=== PATIENT | female | born 1960 | race Caucasian/White ===

== ENCOUNTER 2024-05-10 18:12 | Day surgery (SDC) | payer OTHER, SELFPAY ==
[2024-05-10 13:58] VITALS: BP 195/108
[2024-05-10 14:16] LABS: % Basophils 0.2 % (0-2); % Eosinophils 0.3 % (0-6); % Immature Granulocytes 0.4 % (0-0.5); % Lymphocytes 9.8 % (20.5-51.1); % Monocytes 5.5 % (1.7-9.3); % Neutrophils 83.8 % (42.2-75.2); Absolute Immature Granulocytes 0.1 10^3/uL (0-0.05); Absolute Lymphocytes 1.3 10^3/uL (1.2-3.4); Absolute Monocytes 0.7 10^3/uL (0.1-0.6); Absolute Neutrophils 11.1 10^3/uL (1.4-6.5); Hematocrit 42.3 % (37.0-47.0); Mean Corp Hgb Conc. 35.5 g/dL (33.0-37.0); Mean Corpuscular Hgb 29.3 pg (27.0-31.0); Mean Corpuscular Volume 82.6 fL (81.0-99.0); Mean Platelet Volume 9.8 fL (7.4-10.4); Nucleated Red Blood Cells % 0 %; Platelet Count 182 10^3/uL (130-400); Red Blood Cell Count 5.12 10^6/uL (4.20-5.40); Red Cell Dist. Width 12.6 % (11.5-14.5); White Blood Cell Count 13.2 10^3/uL (4.8-10.8)
[2024-05-10 14:17] LABS: Urine Albumin Negative (Neg - Trace); Urine Bilirubin Negative (Negative); Urine Character Clear (Clear); Urine Color Yellow; Urine Glucose Negative (Negative); Urine Ketone 3+ (Negative); Urine Leukocyte Negative (Negative); Urine Nitrite Negative (Negative); Urine Occult Blood 1+ (Negative); Urine Specific Gravity 1.015 (<1.030); Urine Urobilinogen Negative (Neg - 1+)
[2024-05-10 14:32] LABS: ALT (SGPT) 33 U/L (0-35); AST (SGOT) 31 U/L (14-36); Albumin 4.8 g/dl (3.5-5.0); Alkaline Phosphatase 98 U/L (38-126); Blood Urea Nitrogen 17 mg/dl (7-17); Calcium 9.5 mg/dl (8.4-10.2); Carbon Dioxide 25 mmol/L (22-30); Chloride 100 mmol/L (98-107); Glucose 120 mg/dl (70-99); Potassium 4.5 mmol/L (3.5-5.1); Sodium 135 mmol/L (135-145); Total Bilirubin 1.4 mg/dl (0.2-1.3); Total Protein 7.5 g/dl (6.3-8.2); eGFR 50.86
[2024-05-10 14:43] LABS: Urine Red Blood Cell 0-2 /HPF (0-2); Urine White Cell 0-2 /HPF (0-5)
--- NOTE | 2024-05-10 14:51 | ED.GENMED ---
History of Present Illness
<Ivy Aquino PA-C - Last Filed: 05/10/24 18:18>
General
Chief Complaint: Flank Pain
Source: patient
Exam Limitations: none
Time Seen by Provider: 05/10/24 14:48
Nursing documentation reviewed up to this point in time: agreed with
Travel History
Have you had any contact with someone who has COVID-19?: No
Do you have any symptoms of coronavirus? Fever > 100 degrees, chills, cough, shortness of breath, sore throat, loss of taste or smell, muscle aches, or headache?: No
History of Present Illness
History of Present Illness:
Patient is a 63-year-old female presenting for evaluation of flank pain in setting of a known kidney stone. Patient states that she initially noticed symptoms on Wednesday evening while she was [place] [facility] [place] with dull pain in her left
side. Patient states by Wednesday afternoon the pain in her left side was much more severe and she visited an emergency department in March. She was found to have a 6.6 mm kidney stone on the left side with a 'bacterial infection' per patient.
At that time�patient states it was recommended that she stay in the hospital but she opted for discharge and was placed on a course of Keflex. She was also sent home with 800 mg ibuprofen to take as needed for pain.
Patient states that over the past few days the pain has persisted and is been very severe in her left flank. She describes associated nausea and chills. Patient denies any known fever, blood in her urine, persistent fatigue or weakness. Patient
has been also having some constipation and burning in her esophagus which she believes is likely related to the ibuprofen.
Patient was seen by her primary care provider today for evaluation and was sent to the emergency department due to the concern of a kidney stone and possible infection.
Review of Systems
<Ivy Aquino PA-C - Last Filed: 05/10/24 18:18>
Review of Systems
Allergies reviewed?: Yes
All Other Systems: ROS reviewed and negative except as documented in HPI and ROS
Phy Exam
<Ivy Aquino PA-C - Last Filed: 05/10/24 18:18>
Physical Exam
Physical Exam:
Vitals: Hypertensive, otherwise vital signs stable. Afebrile
General: Patient is moderately uncomfortable appearing, no acute distress. Nontoxic-appearing
Skin: Warm and dry, no rashes or lesions
Head: Normocephalic, atraumatic
Eyes: Sclera nonicteric. EOMs intact. No nystagmus.
Throat: Protecting airway
Neck: Normal ROM, no cervical spine tenderness, no meningismus
Cardiac: Regular rate and rhythm, no murmurs.
Pulm: Normal respiratory effort, no wheezes, rales, rhonchi heard on exam.
Abdomen: Abdomen soft. No abdominal tenderness. No CVA tenderness bilaterally
Extremities: No evidence of cyanosis or edema. Great distal pulses
Neuro: AAOx3. CN II-XII intact. No focal neurologic deficits.
Psychiatric: Normal affect.
Course
<Ivy Aquino PA-C - Last Filed: 05/10/24 18:18>
Orders/Labs/Results
Orders:
Orders
05/10/24 14:06
Complete Blood Count/With Diff Urgent
Comprehensive Metabolic Panel Urgent
Urinalysis Reflex To Culture Urgent
Date Specimen was Collected: 05/10/24
Time Specimen was Collected: 14:01
Urine Microscopic Reflex Cult Urgent
05/10/24 15:11
CT Abd/pel Without Iv Or Oral Urgent
Comment:
Reason For Exam: L flank pain; known kidney stone
0.9% Sodium Chloride 1000 ml [Nss] 1,000 ml IV BOLUS
Ondansetron Injectable [Zofran] 4 mg IV NOW STA
05/10/24 15:14
Ketorolac [Toradol] 15 mg IV NOW STA
05/10/24 15:25
HYDROmorphone [Dilaudid] 1 mg IV NOW STA
05/10/24 17:54
Admit/Transfer Patient As Directed
Co-Sign Provider:
Level of Care: Observation services
Assign to:: Medical/Surgical
Physician / Group: lloyd
Diagnosis: obstructing uteral calculus
05/10/24 17:55
Code Status As Directed
Resuscitation Status: Full Code
05/10/24 17:57
Urine Culture Routine
SHELBI Source: Urine
Specimen Description:
05/11/24 Breakfast
NPO
Allow oral meds: Yes
Allow clear liquids: Sips of Clears
NPO with Ice Chips: No
05/11/24 08:00
Polyethylene Glycol Powder [Miralax] 17 grams PO DAILY
Abnormal Lab Results
05/10/24
14:06
WBC 13.2 H 10^3/uL
(4.8-10.8)
Abs Immat Gran (auto) 0.1 H 10^3/uL
(0-0.05)
Absolute Neuts (auto) 11.1 H 10^3/uL
(1.4-6.5)
Absolute Monos (auto) 0.7 H 10^3/uL
(0.1-0.6)
Neutrophils % 83.8 H %
(42.2-75.2)
Lymphocytes % 9.8 L %
(20.5-51.1)
Creatinine 1.2 H mg/dL
(0.6-1.0)
Glucose 120 H mg/dl
(70-99)
Total Bilirubin 1.4 H mg/dl
(0.2-1.3)
Urine Ketones 3+ A
(Negative)
Ur Occult Blood Reflex 1+ A
(Negative)
06/19/24 14:06
05/10/24 14:06
Vital Signs
Initial and Last Documented VS:
Initial Vital Signs
Temp Pulse Resp BP Pulse Ox
98.9 F 84 18 195/108 98
05/10/24 13:58 05/10/24 13:58 05/10/24 13:58 05/10/24 13:58 05/10/24 13:58
Last Documented Vital Signs
Temp Pulse Resp BP Pulse Ox
98.9 F 78 18 133/73 98
05/10/24 13:58 05/10/24 16:38 05/10/24 16:38 05/10/24 16:38 05/10/24 16:38
<David Caballero, DO - Last Filed: 05/10/24 15:57>
Orders/Labs/Results
Orders:
Orders
05/10/24 14:06
Complete Blood Count/With Diff Urgent
Comprehensive Metabolic Panel Urgent
Urinalysis Reflex To Culture Urgent
Date Specimen was Collected: 05/10/24
Time Specimen was Collected: 14:01
Urine Microscopic Reflex Cult Urgent
05/10/24 15:11
CT Abd/pel Without Iv Or Oral Urgent
Comment:
Reason For Exam: L flank pain; known kidney stone
0.9% Sodium Chloride 1000 ml [Nss] 1,000 ml IV BOLUS
Ondansetron Injectable [Zofran] 4 mg IV NOW STA
05/10/24 15:14
Ketorolac [Toradol] 15 mg IV NOW STA
05/10/24 15:25
HYDROmorphone [Dilaudid] 1 mg IV NOW STA
05/10/24 17:54
Admit/Transfer Patient As Directed
Co-Sign Provider:
Level of Care: Observation services
Assign to:: Medical/Surgical
Physician / Group: lloyd
Diagnosis: obstructing uteral calculus
05/10/24 17:55
Code Status As Directed
Resuscitation Status: Full Code
05/10/24 17:57
Urine Culture Routine
SHELBI Source: Urine
Specimen Description:
05/11/24 Breakfast
NPO
Allow oral meds: Yes
Allow clear liquids: Sips of Clears
NPO with Ice Chips: No
05/11/24 08:00
Polyethylene Glycol Powder [Miralax] 17 grams PO DAILY
Abnormal Lab Results
05/10/24
14:06
WBC 13.2 H 10^3/uL
(4.8-10.8)
Abs Immat Gran (auto) 0.1 H 10^3/uL
(0-0.05)
Absolute Neuts (auto) 11.1 H 10^3/uL
(1.4-6.5)
Absolute Monos (auto) 0.7 H 10^3/uL
(0.1-0.6)
Neutrophils % 83.8 H %
(42.2-75.2)
Lymphocytes % 9.8 L %
(20.5-51.1)
Creatinine 1.2 H mg/dL
(0.6-1.0)
Glucose 120 H mg/dl
(70-99)
Total Bilirubin 1.4 H mg/dl
(0.2-1.3)
Urine Ketones 3+ A
(Negative)
Ur Occult Blood Reflex 1+ A
(Negative)
05/10/24 14:06
05/10/24 14:06
Vital Signs
Initial and Last Documented VS:
Initial Vital Signs
Temp Pulse Resp BP Pulse Ox
98.9 F 84 18 195/108 98
05/10/24 13:58 05/10/24 13:58 05/10/24 13:58 05/10/24 13:58 05/10/24 13:58
Last Documented Vital Signs
Temp Pulse Resp BP Pulse Ox
98.9 F 78 18 133/73 98
05/10/24 13:58 05/10/24 16:38 05/10/24 16:38 05/10/24 16:38 05/10/24 16:38
<Ivy Aquino PA-C - Last Filed: 05/10/24 18:18>
MDM/Problems Addressed
Differential Diagnosis Includes:
Not limited to: Kidney stone, UTI, diverticulitis, zoster, urosepsis
MDM/Problems Addressed:
Patient is a 63-year-old female presenting with intractable pain from known left sided kidney stone diagnosed at a hospital 4 days ago. Patient was told that she had a left-sided kidney stone with a 'bacterial infection'. She was started on Keflex
and discharged with pain medication. Patient reports intractable left-sided flank pain with associated nausea and chills. No vomiting or known fevers. Patient hypertensive on arrival which is likely attributed to pain. Otherwise vital signs are
stable on arrival, she is afebrile. Physical exam as above. Although patient is moderately uncomfortable due to pain�she is nontoxic-appearing. Abdomen soft and nontender. No CVA tenderness bilaterally. No erythema or bruising overlying
bilateral flanks. Labs obtained in triage shows a mild leukocytosis of 13.2 with left shift. Mild elevation in creatinine to 1.2�although no baseline available. Urine shows no signs of infection at this time. Given prior records were done at
outside hospital and unable to obtain at this time�will check a repeat noncontrast CT scan to determine size and location of stone. Will give Toradol, Zofran, IV fluid. Will closely monitor and reassess. Anticipate admission for pain control.
Called and spoke to outside hospital with prior records. It was confirmed that patient's urinalysis did not show signs of UTI, although did have evidence of bacteria which they suspect to be contamination. No urine culture was sent at this time.
Patient was put on Keflex prophylactically due to asymptomatic bacteriuria and known kidney stone. Did discuss this with patient
Patient with significant pain improvement following Toradol. CT scan does show a 7 mm obstructing calculus at left UPJ with associated hydronephrosis of left ureter and left perinephric stranding. Did discuss findings with urologist on-call,
Claus. He was down to evaluate patient at bedside. Patient will be admitted for IV antibiotics and OR tomorrow. Patient comfortable with plan. Discussed with hospitalist.
Chronic conditions affecting care:
Known kidney stone
Acute Exacerbation and/or Progression of Chronic Illness:
Obstructing left ureteral stone
<Ivy Aquino PA-C - Last Filed: 05/10/24 18:18>
*Radiology
Radiology exam reviewed: preliminary read by ED provider and radiology read reviewed
*Pulse Oximetry
Patient hypoxic: no
*EKG
Interpreted by ED Provider?: NA
*Residential Building Inspector Interpretation
Rate: Residential Building Inspector- N/A
*Critical Care Note
Total Time (30-74mins, 75-104mins- exclusive of procedures): Not Applicable
<Ivy Aquino PA-C - Last Filed: 05/10/24 18:18>
Patient Management
Discussion with other providers: Hospitalist and Van Driver Helper (Dr Devlin - Urology)
ED Attending Note
<Ivy Aquino PA-C - Last Filed: 05/10/24 18:18>
-
Portions of this chart may have been created with voice recognition software.� Occasional wrong word or��sound alike� substitutions may have occurred due to the inherent limitations of voice recognition software.
<David Caballero DO - Last Filed: 05/10/24 15:57>
ED Attending Note
Patient seen and examined by attending physician: Yes
I performed the substantive portion of visit, reviewed & personally made and approve the management plan that is documented in note by myself or TAL.: Yes
ED Attending Note:
Patient is 63-year-old female who 3 days ago was seen at [place] [facility] [place] and found to have a 6.6 mm stone and was placed on antibiotics because of bacteria in her urine presents because of increasing pain. Patient has chills but no
fever. Patient's had nausea. Patient has no history of previous kidney stones. Patient was supposed to stay in the hospital but wanted to go home. Patient's been constipated. Patient during the night developed burning in her abdomen after
taking ibuprofen 800 mg. Patient is also taking cephalexin for questionable infected stone. On physical exam patient does appear to be mildly uncomfortable. Heart is regular lungs are clear. Abdomen is essentially unremarkable. Patient does
have left CVA tenderness. Patient has no cyanosis or edema. The urine from the sugar was checked and does not appear to be infected. Patient does not appear to be septic. The location of the stone is unknown. Will repeat the scan. If it truly
is 6.6 mm and in the mid to proximal ureter patient will probably require admission and manipulation.
Discharge Plan
Departure
Patient Disposition: Admit
Date of Disposition: 05/10/24
Time of Disposition: 17:31
Presentation/result/management discussed w/ accepting MD/DO: Hospitalist
Discharge Problem:
Calculus of proximal left ureter
Interventions
Interventions:
*Risk Screen - Suicide Last Done: 05/10/24 15:25
*General Assessment Last Done: 05/10/24 15:25
*Neglect/Abuse Screening Last Done: 05/10/24 15:25
ED- Fall Risk Assessment Last Done: 05/10/24 15:25
DX-Rsolax-Cbpsegamua Assessment Last Done: 05/10/24 15:25
ED-Female Genitourinary Assessment Last Done: 05/10/24 15:25
[2024-05-10] MEDS: TORADOL 15 MG IV (15:34)
[2024-05-10] MEDS: NSS 1000 IV ×2 (15:34→20:51)
[2024-05-10] MEDS: ZOFRAN 4 MG IV (15:34)
[2024-05-10 16:38] VITALS: BP 133/73
--- NOTE | 2024-05-10 17:38 | W.PN.URO.CBU ---
Today's Communication / Plan
-
admit hospitalist npo over midnight hospitalst to choose icve abs call urology if fever chills fever over 101.5
Assessment / Plan
-
pt non toxic but upj stone and at risk foer sepsis will hydrate over nioght render npo give iv abs for stent but if ubstable ie fever over 101.5 hypotension etc then stent tonight
Diagnosis
-
Date of Service: May 10, 2024
-
Patient Diagnosis:
left upj stone no fevr but chills wbc 13k intractable pain on advil and keflex getting worse
Post Op Day:
Subjective
-
coil no ferv no n/v severe contipation colic some chills
Objective
-
Vital Signs
Temp Pulse Resp BP Pulse Ox
98.9 F 78 18 133/73 98
05/10/24 13:58 05/10/24 16:38 05/10/24 16:38 05/10/24 16:38 05/10/24 16:38
Laboratory Results
05/10/24 14:06
05/10/24 14:06
Review of Systems
-
Constitutional: Chills
Abdomen/GI: Abdominal Pain and Constipated
: Flank Pain
Physical Exam
-
General - well developed, well nourished, no acute distress non toxic
Chest - clear bilaterally
Abdomen - soft, non-tender, positive bowel sounds, no CVAT, no incisional pain or distention
Genitalia - normal
Rectal - normal
Skin - warm & dry with no rash
Neuro - AOx3, no motor deficits
Extremities - no clubbing, no cyanosis, no edema
Incision - clean, dry
Dressing - clean, dry, intact
Care Review
Data Reviewed
Discussed with: Nursing
CT Scan: Image Pers Reviewed
--- NOTE | 2024-05-10 17:58 | HPS.HSE ---
Family Physician
-
Family Physician: Mariann Chávez
Chief Complaint
-
left flank pain
History of Present Illness
63-year-old female past medical history of hyperlipidemia, hypothyroidism, kidney stone presenting for left flank pain she initially noticed 3 days ago while she was in [place]. The next day pain on her left side was much more severe and she
went to an emergency room in March. She was found to have 6.6 mm kidney stone on the left side as well as a bacterial infection as per patient. She was recommended to stay in the hospital but she opted for discharge and was started on Keflex.
She was given ibuprofen as needed for pain. Over the past few days pain has persisted and has been very severe with associated nausea and chills. She denies fever, blood in the urine, fatigue or weakness, burning with urination.
She has been constipated and been having burning in the esophagus which she thinks is due to ibuprofen. Last bowel movement 2 days ago despite taking Dulcolax yesterday.
She was sent in by primary care physician.
She is a former smoker. She rarely drinks alcohol.
Medical History
Past Medical History
Past Medical History: Reports Other (hyperlipidemia, hypothyroidism,)
Past Surgical History: Reports Other (deviated septum )
Social History
Tobacco: Former Smoker
Alcohol: Occasional
Drug: None
Family History
Family History: Not pertinent
Allergies / Home Medications
Allergies reflects when Allergies were last updated in [employer].
Home Medications with original date entered in [employer]
Allergy/Medication List:
Allergies
Allergy/AdvReac Type Severity Reaction Status Date / Time
bisacodyl Allergy burning Verified 05/10/24 15:56
[From Dulcolax (bisacodyl)] indigestion
Penicillins Allergy rash from Verified 05/10/24 15:51
young
adult-tolerates
cephalexin
Home Medications
cephalexin 500 mg capsule 500 mg PO BID 05/10/24
ibuprofen 800 mg tablet 800 mg PO BIDPRN PRN moderate pain 05/10/24
levothyroxine 50 mcg tablet 50 mcg PO DAILY@0600 05/10/24
rosuvastatin 10 mg tablet 10 mg PO DAILY 05/10/24
Review of Systems
-
History Source: Patient
A 12 point ROS was completed and negative except as noted: Yes
Constitutional: Reports No Symptoms
EENT: Reports No Symptoms
Respiratory: Reports No Symptoms
Cardiac: Reports No Symptoms
Abdomen/GI: Reports No Symptoms
: Reports See HPI
Musculoskeletal: Reports No Symptoms
Skin: Reports No Symptoms
Neurological: Reports No Symptoms
Endocrine: Reports No Symptoms
Hematologic/Lymphatic: Reports No Symptoms
Psych: Reports No Symptoms
Physical Exam
Vital Signs
Vital Signs
Temp Pulse Resp BP Pulse Ox
98.9 F 78 18 133/73 98
05/10/24 13:58 05/10/24 16:38 05/10/24 16:38 05/10/24 16:38 05/10/24 16:38
Physical Exam
General: Well Developed, Well Nourished and No Apparent Distress
HEENT: NormoCephalic, Moist mucous membranes and Atraumatic
Respiratory: Clear
Cardiac: S1/S2 and Regular Rhythm; No Murmur or Rub
GI: Soft, Non Tender, Non Distended and Normal Bowel Sounds; No Organomegaly
Rectal: Deferred by Provider
Musculoskeletal: No Clubbing, No Cyanosis and No Edema
Skin: No Rash
Neuro: Nonfocal/grossly intact
Laboratory Results
-
05/10/24 14:06
05/10/24 14:06
Laboratory Results
Total Bilirubin 1.4 mg/dl (0.2-1.3) H 05/10/24 14:06
AST 31 U/L (14-36) 05/10/24 14:06
ALT 33 U/L (0-35) 05/10/24 14:06
Alkaline Phosphatase 98 U/L (38-126) 05/10/24 14:06
Data Reviewed
-
Lab Data: Labs Reviewed by me
Old Records: Reviewed
Impression/Plan
-
IMPRESSION:
PLAN:
# Left uteropelvic junction obstructing calculus with moderate left hydronephrosis and left perinephric edema
-Urinalysis unremarkable
-IV fluids
-Dilaudid for pain, Zofran for nausea
-Ceftriaxone
-Urology consulted
-N.p.o. past midnight for OR tomorrow
# Constipation likely secondary to pain
-Start MiraLAX
-Dulcolax suppository if no BM by tomorrow
# GERD possibly exacerbated by NSAID use
-As needed Pepcid
Hyperlipidemia
-Continue statin
Hypothyroidism
-Continue levothyroxine
Full code
DVT prophylaxis�SCDs
N.p.o. past midnight
[2024-05-10 19:36] VITALS: BP 147/95; BMI 33.2
--- NOTE | 2024-05-10 19:40 | PTCARENOTE ---
Patient arrived to [facility]- via stretcher from ED, alert and oriented, ambulated to bed from stretcher with standby assist - patient tolerated well. Patient with elevated BP on arrival 147/93, med/surg orders. Patient arrived eating boxed lunch, to be
NPO past midnight per ED report sheet. Call yadav within reach, patient understands use and will ring for assistance as needed. Will continue to monitor.
[2024-05-10] MEDS: ROCEPHIN 1000 MG IV (21:12)
[2024-05-10] MEDS: STERILE WATER FOR INJECTION 10 ML IV (21:13)
[2024-05-10 23:00] VITALS: BP 131/72
[2024-05-11] VITALS (10 sets, daily range): BP systolic 90–143; BP diastolic 56–87
[2024-05-11] MEDS: DILAUDID 0.5 MG IV ×3 (01:16→10:57)
[2024-05-11] MEDS: NSS 1000 IV (04:56)
[2024-05-11] MEDS: SYNTHROID PO (04:59)
[2024-05-11 05:46] LABS: % Basophils 0.3 % (0-2); % Eosinophils 1.7 % (0-6); % Immature Granulocytes 0.6 % (0-0.5); % Lymphocytes 20.1 % (20.5-51.1); % Monocytes 8.1 % (1.7-9.3); % Neutrophils 69.2 % (42.2-75.2); Absolute Eosinophils 0.2 10^3/uL (0-0.7); Absolute Immature Granulocytes 0.1 10^3/uL (0-0.05); Absolute Lymphocytes 1.9 10^3/uL (1.2-3.4); Absolute Monocytes 0.8 10^3/uL (0.1-0.6); Absolute Neutrophils 6.6 10^3/uL (1.4-6.5); Hematocrit 36.2 % (37.0-47.0); Hemoglobin 12.7 g/dL (12.0-16.0); Mean Corp Hgb Conc. 35.1 g/dL (33.0-37.0); Mean Corpuscular Hgb 29.1 pg (27.0-31.0); Mean Platelet Volume 9.6 fL (7.4-10.4); Nucleated Red Blood Cells % 0 %; Platelet Count 158 10^3/uL (130-400); Red Blood Cell Count 4.36 10^6/uL (4.20-5.40); Red Cell Dist. Width 12.6 % (11.5-14.5); White Blood Cell Count 9.6 10^3/uL (4.8-10.8)
[2024-05-11 07:12] LABS: ALT (SGPT) 23 U/L (0-35); AST (SGOT) 21 U/L (14-36); Albumin 3.7 g/dl (3.5-5.0); Alkaline Phosphatase 77 U/L (38-126); Blood Urea Nitrogen 17 mg/dl (7-17); Calcium 8.3 mg/dl (8.4-10.2); Carbon Dioxide 24 mmol/L (22-30); Chloride 106 mmol/L (98-107); Estimated Creatinine Clearance 47 ml/min; Glucose 95 mg/dl (70-99); Potassium 4.1 mmol/L (3.5-5.1); Sodium 139 mmol/L (135-145); Total Bilirubin 0.8 mg/dl (0.2-1.3); Total Protein 6.1 g/dl (6.3-8.2); eGFR 46.21
--- NOTE | 2024-05-11 08:03 | W.PN.HOSP.TC ---
Addendum entered and electronically signed by Pauline Ramos MD 05/11/24 17:02:
pt seen and examined independently--Agree with plan as set forth by Dr. Kyle
GENERAL: well developed, well nourished, female in no apparent distress
HEENT: NC/AT
HEART: regular rate and rhythm, +S1, +S2
LUNGS : clear to auscultation bilaterally
ABDOM: soft, nontender, nondistended, + bowel sounds--no flank pain to palpation
EXT: no cyanosis, clubbing, or edema
NEUROLOGIC: grossly intact
Left renal calculus presenting as flank pain--CT abdomen pelvis with a 7 mm obstructing calculus at the left ureteropelvic junction associated with mild left and moderate left hydronephrosis and mild left perinephric edema. There are nonobstructing
left-sided renal calculi measuring up to 6 mm and There is 3 cm left renal cyst--Left uteropelvic junction obstructing calculus with moderate left hydronephrosis and left perinephric edema--apprec urology for stent placement--follow cultures--cont
IV rocephin and follow cultures
CALLIE--likely from obstructing stone--follow with IVF and post op--Creatinine 1.3--Dilaudid for pain, Zofran for nausea
Constipation--secondary to pain and surrounding inflammation causing ileus--Glycerin suppository
GERD--possibly due to NSAID use--Pepcid as needed
Hyperlipidemia--Continue statin
Hypothyroidism--Continue levothyroxine
DVT prophylaxis�SCDs
Code status --Full code
Original Note:
Today's Communication/Plan
-
Urology consulted�left ureteral stent placement today.
Assessment / Plan
Assessment / Plan
Assessment
63-year-old female with past medical history of hyperlipidemia, hypothyroidism admitted for evaluation of her left flank pain since 3 days. She is from [place] and went to an emergency room in March earlier and she was diagnosed with a
left-sided 6.6 mm kidney stone, patient refused to be managed further and opted to be discharged on Keflex. Her symptoms worsened, along with fever, nausea. She has been managing pain with ibuprofen. Patient also reports having constipation.
Impression
Left renal calculus
Constipation
GERD
Hyperlipidemia
Hypothyroidism
PLAN
# Left renal calculus
CT abdomen pelvis� There is a 7 mm obstructing calculus at the left ureteropelvic junction associated with mild left and moderate left hydronephrosis and mild left perinephric edema. There are nonobstructing left-sided renal calculi measuring up to
6 mm
There is 3 cm left renal cyst
Left uteropelvic junction obstructing calculus with moderate left hydronephrosis and left perinephric edema
Leukocytosis 13.2 on admission
Trend CBC
Urinalysis 3+ ketones, occult blood 1+
Creatinine 1.3
Urine culture pending
IV fluids
Dilaudid for pain, Zofran for nausea
IV ceftriaxone
Urology consulted
Plan for left ureteral stent placement
Definitive laser treatment in the upcoming weeks
# Constipation
secondary to pain and surrounding inflammation causing ileus
Glycerin suppository
# GERD
possibly due to NSAID use
Pepcid as needed
#Hyperlipidemia
Continue statin
#Hypothyroidism
Continue levothyroxine
DVT prophylaxis�SCDs
Full code
Anticipated Discharge: 24 - 48 hours
Subjective/Interval History
-
Date of Service: May 11, 2024
Patient still reports having mild heartburn, no bowel movement since 3 days. Patient reports having ongoing pain in the flank region, without any radiation.
Objective Data
-
Labs:
Laboratory Results
05/11/24
05:36
WBC 9.6
Hgb 12.7
Hct 36.2 L
Plt Count 158
Sodium 139
Potassium 4.1
Chloride 106
Carbon Dioxide 24
BUN 17
Creatinine 1.3 H
Glucose 95
Calcium 8.3 L
Total Bilirubin 0.8
AST 21
ALT 23
Alkaline Phosphatase 77
Vital Signs:
Vital Signs
Temp Pulse Resp BP Pulse Ox
98.2 F 85 16 142/84 94
05/11/24 07:00 05/11/24 07:00 05/11/24 07:00 05/11/24 07:00 05/11/24 07:00
I&O
05/10/24 05/11/24 05/12/24
06:59 06:59 06:59
Intake Total 0 / 0
Balance 0 / 1680
Review of Systems
-
All other systems: Reviewed and negative (As per HPI)
Physical Exam
-
General: Well Developed and Well Nourished
HEENT: Normocephalic and Atraumatic
Respiratory: Clear to Auscultation
Cardiac: S1/S2
GI: Soft, Nontender, Nondistended and Normal Bowel Sounds
Genito-urinary: No Costovertebral Tender
Skin: Warm and Dry
Neuro: Awake, Alert, Oriented and AO x 3
[2024-05-11] MEDS: CRESTOR PO (08:06)
[2024-05-11] MEDS: MIRALAX PO (08:07)
--- NOTE | 2024-05-11 11:16 | W.PN.URO.CBU ---
Today's Communication / Plan
-
to op room
Assessment / Plan
-
pt non toxic but upj stone and at risk foer sepsis did preop[ aware jsr enma loza will then schedule definitive laser in coming weeks as stabilized on abs possibly home if stable today
Diagnosis
-
Date of Service: May 11, 2024
-
Patient Diagnosis:
Post Op Day:
Patient Diagnosis:
left upj stone no fevr but chills wbc 13k intractable pain on advil and keflex getting worse
Post Op Day:
Subjective
-
still pain constipation no fever chills
Objective
-
Vital Signs
Temp Pulse Resp BP Pulse Ox
98.2 F 85 16 142/84 94
05/11/24 07:00 05/11/24 07:00 05/11/24 07:00 05/11/24 07:00 05/11/24 07:00
Intake and Output
05/10/24 05/11/24 05/12/24
06:59 06:59 06:59
Intake Total 1680 / 1680
Balance 1680 / 1680
Intake:
Oral fluids 240 / 240
IV fluids (Total) 1440 / 1440
Other:
Number of approximated MODERATE 2
amounts of urine
Laboratory Results
05/11/24 05:36
05/11/24 05:36
Review of Systems
-
: Flank Pain
Physical Exam
-
General - well developed, well nourished, no acute distress non toxic
Chest - clear bilaterally
Abdomen - soft, non-tender, positive bowel sounds, no CVAT, no incisional pain or distention
Genitalia - normal
Rectal - normal
Skin - warm & dry with no rash
Neuro - AOx3, no motor deficits
Extremities - no clubbing, no cyanosis, no edema
Incision - clean, dry
Dressing - clean, dry, intact
Care Review
Data Reviewed
Discussed with: Nursing
--- NOTE | 2024-05-11 15:08 | W.IMMPOSTOP ---
Surgical Immed Post Op Note
-
Primary Surgeon:
jethro
Assisting Surgeon:
Pre-op Diagnosis:
left ureteral stone and UTI
Post-op Diagnosis:
same
Procedure Performed:
cysto/left ureteral stent
Anesthesia Type:
gen
Specimen / Cultures:
none
Estimated Blood Loss:
1cc
Complications:
none
Operative Findings:
nl bladder
left ureteral stent placed with small amount of purulent urine expressed upon stent placement
to pacu in stable condition
observe overnight- await ucx
--- NOTE | 2024-05-11 15:21 | CM ---
Patient seen at bedside with physician and residents. Patient stated that she lives with her in a 2 story home. patient has no DME and uses the [facility] in [place]. Patient PCP is Dr. Sanchez. Patient stated that she is going for surgery today and
anticipated discharge home with no needs. CM will review OBS status with patient. CM will continue to follow for discharge planning needs.
Plan; home with no needs anticipated
[2024-05-11] MEDS: Pyridium 100 MG PO ×2 (16:41→23:05)
[2024-05-11] MEDS: NSS IV (19:57)
[2024-05-11] MEDS: STERILE WATER FOR INJECTION 10 ML IV (21:10)
[2024-05-11] MEDS: ROCEPHIN 1000 MG IV (21:10)
[2024-05-12 05:38] LABS: Hematocrit 40.5 % (37.0-47.0); Hemoglobin 13.8 g/dL (12.0-16.0); Mean Corp Hgb Conc. 34.1 g/dL (33.0-37.0); Mean Corpuscular Volume 85.1 fL (81.0-99.0); Mean Platelet Volume 9.5 fL (7.4-10.4); Platelet Count 159 10^3/uL (130-400); Red Blood Cell Count 4.76 10^6/uL (4.20-5.40); Red Cell Dist. Width 12.3 % (11.5-14.5); White Blood Cell Count 8.4 10^3/uL (4.8-10.8)
[2024-05-12 05:58] LABS: ALT (SGPT) 25 U/L (0-35); AST (SGOT) 25 U/L (14-36); Alkaline Phosphatase 88 U/L (38-126); Blood Urea Nitrogen 15 mg/dl (7-17); Calcium 9.2 mg/dl (8.4-10.2); Carbon Dioxide 25 mmol/L (22-30); Chloride 107 mmol/L (98-107); Estimated Creatinine Clearance 88 ml/min; Glucose 132 mg/dl (70-99); Potassium 4.5 mmol/L (3.5-5.1); Sodium 141 mmol/L (135-145); Total Bilirubin 0.6 mg/dl (0.2-1.3); Total Protein 6.5 g/dl (6.3-8.2); eGFR > 60.00
[2024-05-12] MEDS: SYNTHROID 50 MCG PO (06:08)
[2024-05-12 07:00] VITALS: BP 123/68
[2024-05-12] MEDS: MIRALAX 17 GRAMS PO (08:15)
[2024-05-12] MEDS: CRESTOR 10 MG PO (08:16)
[2024-05-12] MEDS: Pyridium 100 MG PO ×2 (08:16→15:56)
--- NOTE | 2024-05-12 08:51 | W.PN.URO.CBU ---
Today's Communication / Plan
-
per hospitalist
Assessment / Plan
-
pt non toxic but upj stone and at risk foer sepsis did preop[ aware jsr enma loza will then schedule definitive laser in coming weeks as stabilized on abs possibly home if stable today
Diagnosis
-
Date of Service: May 12, 2024
-
Patient Diagnosis:
Post Op Day:
Patient Diagnosis:
Post Op Day:
Patient Diagnosis:
left upj stone no fevr but chills wbc 13k intractable pain on advil and keflex getting worse
Post Op Day:
Subjective
-
no fever chills some urgency
Objective
-
Vital Signs
Temp Pulse Resp BP Pulse Ox
98.2 F 69 16 123/68 93
05/12/24 07:00 05/12/24 07:00 05/12/24 07:00 05/12/24 07:00 05/12/24 07:00
Intake and Output
05/11/24 05/12/24 05/13/24
06:59 06:59 06:59
Intake Total 1680 / 1680 1100 / 1100
Balance 1680 / 1680 1100 / 1100
Intake:
Oral fluids 240 / 240 900 / 900
IV fluids (Total) 1440 / 1440 200 / 200
Normosol 200 / 200
Other:
Number of approximated MODERATE 2 2
amounts of urine
Laboratory Results
05/12/24 05:25
05/12/24 05:25
Review of Systems
-
: Frequency and Urgency
Physical Exam
-
General - well developed, well nourished, no acute distress
Chest - clear bilaterally
Abdomen - soft, non-tender, positive bowel sounds, no CVAT, no incisional pain or distention
Genitalia - normal
Rectal - normal
Skin - warm & dry with no rash
Neuro - AOx3, no motor deficits
Extremities - no clubbing, no cyanosis, no edema
Incision - clean, dry
Dressing - clean, dry, intact
Care Review
Data Reviewed
Discussed with: Hospitalist and Nursing
--- NOTE | 2024-05-12 09:38 | W.PN.HOSP.TC ---
Addendum entered and electronically signed by Pauline Ramos MD 05/12/24 16:59:
pt seen and examined independently--Agree with plan as set forth by Dr. Kyle
GENERAL: well developed, well nourished, female in no apparent distress
HEENT: NC/AT
HEART: regular rate and rhythm, +S1, +S2
LUNGS : clear to auscultation bilaterally
ABDOM: soft, nontender, nondistended, + bowel sounds
EXT: no cyanosis, clubbing, or edema
NEUROLOGIC: grossly intact
Left renal calculus presenting as flank pain--CT abdomen pelvis with a 7 mm obstructing calculus at the left ureteropelvic junction associated with mild left and moderate left hydronephrosis and mild left perinephric edema. There are nonobstructing
left-sided renal calculi measuring up to 6 mm and There is 3 cm left renal cyst--Left uteropelvic junction obstructing calculus with moderate left hydronephrosis and left perinephric edema--apprec urology s/p stent placement--follow cultures-- IV
rocephin to oral keflex at d/c--follow cultures
CALLIE--likely from obstructing stone--follow with IVF and post op--Creatinine 1.3, now within normal limits--Dilaudid for pain, Zofran for nausea
Constipation--secondary to pain and surrounding inflammation causing ileus--Glycerin suppository given
GERD--possibly due to NSAID use--Pepcid as needed
Hyperlipidemia--Continue statin
Hypothyroidism--Continue levothyroxine
DVT prophylaxis�SCDs
Code status --Full code
More than 30 minutes spent in discharge including
Final examination of the patient
Summarizing hospital stay
Instructions for continuing care to all relevant caregivers
Preparation of discharge records, prescriptions, and referral forms
Total time spent (in minutes): 35
Original Note:
Today's Communication/Plan
-
Discharge today
Transition to per oral Keflex
Assessment / Plan
Assessment / Plan
Assessment
63-year-old female with past medical history of hyperlipidemia, hypothyroidism admitted for evaluation of her left flank pain since 3 days. She is from [place] and went to an emergency room in March earlier and she was diagnosed with a
left-sided 6.6 mm kidney stone, patient refused to be managed further and opted to be discharged on Keflex. Her symptoms worsened, along with fever, nausea. She has been managing pain with ibuprofen. Patient also reports having constipation.
Impression
Left renal calculus s/p left ureteral stent placement
Constipation
GERD
Hyperlipidemia
Hypothyroidism
PLAN
# Left renal calculus
S/p left ureteral stent placement�05/11/2024
CT abdomen pelvis� There is a 7 mm obstructing calculus at the left ureteropelvic junction associated with mild left and moderate left hydronephrosis and mild left perinephric edema. There are nonobstructing left-sided renal calculi measuring up to
6 mm
There is 3 cm left renal cyst
Left uteropelvic junction obstructing calculus with moderate left hydronephrosis and left perinephric edema
Leukocytosis 13.2 on admission
Trend CBC
Urinalysis 3+ ketones, occult blood 1+
Creatinine 1.3
Urine culture pending
IV fluids
Dilaudid for pain, Zofran for nausea
IV ceftriaxone
Urology consulted
Plan for left ureteral stent placement
Definitive laser treatment in the upcoming weeks
Transition to Keflex upon discharge
# Constipation
secondary to pain and surrounding inflammation causing ileus
Glycerin suppository
# GERD
possibly due to NSAID use
Pepcid as needed
#Hyperlipidemia
Continue statin
#Hypothyroidism
Continue levothyroxine
DVT prophylaxis�SCDs
Full code
Anticipated Discharge: Today
Subjective/Interval History
-
Date of Service: May 12, 2024
Patient reports her abdominal pain has improved. She did not have a bowel movement.
Patient reports developing erythematous rash on the face and neck and upper chest after she took her shower today.
Objective Data
-
Labs:
Laboratory Results
05/12/24
05:25
WBC 8.4
Hgb 13.8
Hct 40.5
Plt Count 159
Sodium 141
Potassium 4.5
Chloride 107
Carbon Dioxide 25
BUN 15
Creatinine 0.7
Glucose 132 H
Calcium 9.2
Total Bilirubin 0.6
AST 25
ALT 25
Alkaline Phosphatase 88
Vital Signs:
Vital Signs
Temp Pulse Resp BP Pulse Ox
98.2 F 69 16 123/68 93
05/12/24 07:00 05/12/24 07:00 05/12/24 07:00 05/12/24 07:00 05/12/24 07:00
I&O
05/11/24 05/12/24 05/13/24
06:59 06:59 06:59
Intake Total 1680 / 1680 1100 / 1100
Balance 1680 / 1680 1100 / 1100
Review of Systems
-
All other systems: Reviewed and negative (As per HPI)
Physical Exam
-
General: Well Developed and Well Nourished
HEENT: Normocephalic and Atraumatic
Respiratory: Clear to Auscultation
Cardiac: S1/S2
GI: Soft, Nontender, Nondistended and Normal Bowel Sounds
Genito-urinary: No Costovertebral Tender
Skin: Warm and Dry
Neuro: Awake, Alert, Oriented and AO x 3
Psych: Calm
--- NOTE | 2024-05-12 09:47 | W.DCSUMMARY ---
Addendum entered and electronically signed by Pauline Ramos MD 05/12/24 18:52:
time for d/c 35 minutes
Addendum entered and electronically signed by Pauline Ramos MD 05/12/24 18:51:
Read fully and agree with summary as put forth by Dr. Kyle.
Nothing further to add.
Original Note:
Discharge Summary
Discharge Data
Date of Admission: 05/10/24
Date of Discharge: 05/12/24
-
Pending Results: No
Hospital Course
Discharging Physician : Dr. Pauline Ramos, Dr. Saira Kyle
Disposition : Home
Primary care physician : Dr. Mariann Chávez
Principal Discharge diagnosis : Left ureteral calculus
Chronic Discharge diagnosis : Constipation, GERD, hyperlipidemia, hypothyroidism.
Hospital Course : 63-year-old female with past medical history of hyperlipidemia, hypothyroidism admitted for evaluation of her left flank pain since 3 days. She is from [place] and went to an emergency room in March earlier and she was
diagnosed with a left-sided 6.6 mm kidney stone, patient refused to be managed further and opted to be discharged on Keflex. Her symptoms worsened, along with fever, nausea. She has been managing pain with ibuprofen. Patient also reports having
constipation. Workup in the ER showed leukocytosis at 13.2, no evidence of UTI, urine ketones 3+ and occult blood negative. CT abdomen pelvis�7 mm obstructing calculus at the left ureteropelvic junction with mild left hydronephrosis with
perinephric edema. Urology consulted�plan to place left ureteral stent, definitely laser in the upcoming weeks. She was started on IV antibiotics. Her home medications were continued. She was operated for left ureteral stent placement on
05/11/2024. She was given phenazopyridine. Her urine culture came back negative. She was given glycerin suppository, MiraLAX for constipation, GERD managed with Pepcid as needed. Patient's WBC trended down to 8.4, patient reports her abdominal
pain has improved, clinically stable to be discharged home. Upon discharge she was instructed to use cephalexin for 3 more days, in addition to her Keflex that she has at home for 2 days. Follow-up with urology within 1 week for further management
of her left ureteral stone, s/p stent placement. Advised adequate hydration.
Discharge Plan
-
Patient Disposition: Home (Routine Discharge)
Discharge Diagnosis/Procedures: Left proximal ureteral calculus
Diet: No restrictions
Activity: No restrictions
Driving Restrictions: As prior to admission
Bathing Restrictions: None
Referrals:
Bautista Devlin MD [Active] - in less than 1 week
Mariann Chávez PA-C [Family Provider] - in less than 1 week
Additional Discharge Medication Instructions: Finish home medication off Keflex, then continue cephalexin for 3 more days , phenazopyridine 100 mg by mouth, 3 times daily as needed, polyethylene glycol 17 g by mouth daily as needed.
Prescriptions:
New
polyethylene glycol 3350 [HealthyLax] 17 gram Powder In Packet
17 g PO DAILY PRN (Reason: constipation) Qty: 14 0RF
phenazopyridine 100 mg Tablet
100 mg PO Q8 PRN (Reason: Pain) Qty: 10 0RF
cephalexin 500 mg capsule
500 mg PO Q12H Qty: 6 0RF
Continued
ibuprofen 800 mg tablet
800 mg PO BIDPRN PRN (Reason: moderate pain)
levothyroxine 50 mcg tablet
50 mcg PO DAILY@0600
cephalexin 500 mg capsule
500 mg PO BID
rosuvastatin 10 mg tablet
10 mg PO DAILY
Discharge Orders:
Discharge Patient (As Directed); Ordered 05/12/24
Ordered By: Saira Kyle
Discharge Date and Time
Discharge Date/Time: 05/12/24 16:12
Print Language: VIET[place]ESE
[2024-05-12] MEDS: BENADRYL 25 MG PO (12:40)
--- NOTE | 2024-05-12 13:15 | CM ---
Per physician patient status changed to SDC. Patient indicated no discharge needs and plan is to go home with her . CM will continue to follow for discharge planning needs.
Plan; home with no needs
[2024-05-12 15:10] VITALS: BP 139/75
== END 2024-05-12 16:12 | disposition home or self-care (01) ==
LOC: SDS 18:12
PROVIDERS: Emergency Medicine; Hospitalist; Student in an Organized Health Care Education/Training Program; CONSULT PHYSICIAN Specialist; EMERGENCY PHYSICIAN Emergency Medicine; FAMILY PHYSICIAN Physician Assistant
DX: N20.1 Calculus of ureter (principal)
CPT/HCPCS: 52332; 74018; 74176; 76000; 80053; 81003; 81015; 85025; 85027; 87086; 96374; 96375; 99284; C1758; C1894; C2617; G0378

== ENCOUNTER 2024-05-23 06:08 | Day surgery (SDC) | payer OTHER, SELFPAY ==
[2024-05-23 06:56] VITALS: BP 135/72
[2024-05-23 06:57] VITALS: BMI 31.7
[2024-05-23 07:14] VITALS: BMI 31.7
[2024-05-23] MEDS: NORMOSOL-R 1000 IV (07:26)
[2024-05-23] MEDS: TYLENOL 1000 MG PO (07:30)
[2024-05-23 09:17] VITALS: BP 114/71; BP 135/72
[2024-05-23 09:30] VITALS: BP 113/99
[2024-05-23] MEDS: Pyridium 200 MG PO (09:44)
[2024-05-23 09:47] VITALS: BP 112/84
[2024-05-23 10:05] VITALS: BP 113/71
[2024-05-23 10:30] VITALS: BP 108/68
[2024-05-26 15:37] LABS: Stone Analysis Mass 28 mg
== END 2024-05-23 10:35 | disposition home or self-care (01) ==
LOC: SDS 06:08
PROVIDERS: ATTENDING PHYSICIAN Specialist
DX: N20.0 Calculus of kidney (principal); A41.9 Sepsis, unspecified organism
CPT/HCPCS: 52356; 74420; 76000; 82365; 87086; 93005; C1894; C2617